=== PATIENT | male | born 1965 | race Caucasian/White ===

== ENCOUNTER 2018-10-03 12:29 | Inpatient (IN) | payer MEDICAID ==
[~2018-10-03] VITALS: Ht 175.3 cm; Wt 110.9 kg
[2018-10-03 12:58] LABS: BASOPHILS # (AUTO) 0.06 x10^3/uL (0-0.1); BASOPHILS % (AUTO) 1 % (0-1); EOSINOPHILS # (AUTO) 0.21 x10^3/uL (0-0.4); EOSINOPHILS % (AUTO) 3 % (1-7); LYMPHOCYTES # (AUTO) 1.65 x10^3/uL (1-3.4); LYMPHOCYTES % (AUTO) 20 % (22-44); MD NO; MEAN CORPUSCULAR HEMOGLOBIN 32.3 pg (27.5-34.5); MEAN CORPUSCULAR HGB CONC 33.2 g/dL (33.2-36.2); MEAN CORPUSCULAR VOLUME 97.1 fL (81-97); MONOCYTES # (AUTO) 0.57 x10^3/uL (0.2-0.8); MONOCYTES % (AUTO) 7 % (2-9); NEUTROPHILS # (AUTO) 5.76 x10^3/uL (1.8-6.8); NEUTROPHILS % (AUTO) 70 % (42-75); PLATELET COUNT 389 x10^3/uL (130-400); RED BLOOD COUNT 4.73 x10^6/uL (4.38-5.82); RED CELL DISTRIBUTION WIDTH 14.1 % (9.4-14.8)
[2018-10-03 13:09] LABS: ALBUMIN 0.6 g/dL (3.4-5.0); ANION GAP 5 mmol/L (5-15); CALCIUM 7.5 mg/dL (8.5-10.1); CHLORIDE 109 mmol/L (98-107)
[2018-10-03 13:14] LABS: ALANINE AMINOTRANSFERASE 14 U/L (12-78); ALKALINE PHOSPHATASE 67 U/L (45-117); BILIRUBIN,TOTAL 0.2 mg/dL (0.2-1.0); CREATININE 1.25 mg/dL (0.7-1.3); TOTAL PROTEIN 4.6 g/dL (6.4-8.2)
--- NOTE | 2018-10-03 14:14 | NUR ---
OUTPATIENT CLERK: PT TO ROOM FROM [facility].
--- NOTE | 2018-10-03 14:25 | NUR ---
PT TO ED WITH GENERALIZED ABDOMINAL AND LE SWELLING X1MO. PT PLACED ON MONITOR, MD AT BEDSIDE
[2018-10-03] MEDS ORDERED: FUROSEMIDE 40 MG/4 ML IVPush ONE (14:30)
[2018-10-03] MEDS ORDERED: SODIUM CHLORIDE FLUSH 10ML SYR IVF ONE (14:30)
[2018-10-03] MEDS ORDERED: OMNIPAQUE 350 MG/ML, 150 ML BOTTLE ONE (15:02)
[2018-10-03] MEDS ORDERED: FUROSEMIDE 20 MG/2 ML ONE (15:23)
--- NOTE | 2018-10-03 15:32 | NUR ---
PT BACK FROM CT, LASIX GIVEN. AWAITING URINE SAMPLE, PT DOES NOT WANT CATH, STATES HE WILL TRY AND PEE. FRIEND AT BEDSIDE, PT RESTING IN GURNEY WATCHING TV
[2018-10-03 15:39] LABS: THYROID STIMULATING HORMONE 3.93 mIU/L (0.358-3.740)
--- NOTE | 2018-10-03 16:36 | NUR ---
URINE SENT TO LAB
[2018-10-03 17:15] LABS: MICROSCOPIC INDICATED
[2018-10-03 17:34] LABS: CULTURE INDICATED? NO
[2018-10-03] MEDS ORDERED: ONDANSETRON 2MG/ML, 2ML IVPush PRN (18:00)
[2018-10-03] MEDS ORDERED: hydrALAzine 20 MG/ML, 1ML IVPush PRN (18:00)
[2018-10-03] MEDS ORDERED: ACETAMINOPHEN 325 MG TABLET PO PRN (18:00)
[2018-10-03] MEDS ORDERED: ENOXAPARIN 40 MG/0.4 ML ONE ×2 (18:08→18:31)
[2018-10-03 18:30] LABS: AMPHETAMINE SCREEN, URINE Negative (Negative); BARBITURATE SCREEN, URINE Negative (Negative); BENZODIAZEPINE SCREEN, URINE Negative (Negative); CANNABINOID SCREEN, URINE Negative (Negative); COCAINE SCREEN, URINE Negative (Negative); METHADONE SCREEN, URINE Negative (Negative); OPIATE SCREEN, URINE Negative (Negative)
[2018-10-03] MEDS: ALBUMIN HUMAN 25% 100 ML IV SCH (18:38)
[2018-10-03] MEDS: ENOXAPARIN 40 MG/0.4 ML SQ SCH (18:38)
--- NOTE | 2018-10-03 18:41 | NUR ---
BREAK RN: PT MEDICATED PER MD ORDER, EDUCATION ABOUT MEDICATIONS PROVIDED, ALL QUESTIONS ANSWERED. VSS AND INPUTTED INTO COMPUTER.
--- NOTE | 2018-10-03 19:13 | NUR ---
REPORT TO ED RIC[facility]
[2018-10-03 19:35] VITALS: BP 130/94
[2018-10-03 20:10] VITALS: BP 106/57
[2018-10-04 01:10] VITALS: BP 111/72
[2018-10-04] MEDS: ALBUMIN HUMAN 25% 100 ML IV SCH ×3 (02:53→17:29)
[2018-10-04 06:49] VITALS: BP 105/69
[2018-10-04 08:18] LABS: CHOL/HDL RATIO 12.7; LDL/HDL RATIO 9.8 (0.5-3.0)
[2018-10-04 13:16] VITALS: BP 113/71
[2018-10-04] MEDS: ENOXAPARIN 40 MG/0.4 ML SQ SCH (17:29)
[2018-10-04 19:55] VITALS: BP 114/69
[2018-10-05 01:10] VITALS: BP 119/70
[2018-10-05] MEDS: ALBUMIN HUMAN 25% 100 ML IV SCH ×4 (01:51→20:57)
[2018-10-05 04:59] LABS: ALANINE AMINOTRANSFERASE 8 U/L (12-78); ALBUMIN 1.5 g/dL (3.4-5.0); ANION GAP 3 mmol/L (5-15); CALCIUM 7.4 mg/dL (8.5-10.1); CHLORIDE 111 mmol/L (98-107); CREATININE 1.11 mg/dL (0.7-1.3)
[2018-10-05 05:01] LABS: ALKALINE PHOSPHATASE 38 U/L (45-117); BILIRUBIN,TOTAL 0.4 mg/dL (0.2-1.0)
[2018-10-05] MEDS ORDERED: FUROSEMIDE 20 MG/2 ML IV SCH ×2 (07:30→12:00)
[2018-10-05 08:22] VITALS: BP 118/76
[2018-10-05] MEDS: FUROSEMIDE 20 MG/2 ML IV SCH ×2 (11:14→21:45)
[2018-10-05 14:03] VITALS: BP 111/71
[2018-10-05] MEDS: ENOXAPARIN 40 MG/0.4 ML SQ SCH (18:40)
[2018-10-05 19:01] VITALS: BP 115/73
[2018-10-06 00:03] VITALS: BP 129/82
[2018-10-06 05:00] LABS: CHLORIDE 112 mmol/L (98-107)
[2018-10-06 05:03] LABS: ANION GAP 3 mmol/L (5-15); CALCIUM 7.3 mg/dL (8.5-10.1); CREATININE 0.93 mg/dL (0.7-1.3)
[2018-10-06 06:53] VITALS: BP 116/77
[2018-10-06] MEDS: ALBUMIN HUMAN 25% 100 ML IV SCH ×2 (12:53→17:40)
[2018-10-06] MEDS: ERGOCALCIFEROL 50,000 UNIT CAPSULE PO SCH (12:53)
[2018-10-06] MEDS: FUROSEMIDE 20 MG/2 ML IV SCH ×2 (12:54→18:56)
[2018-10-06 13:04] VITALS: BP 118/82
[2018-10-06] MEDS: ENOXAPARIN 40 MG/0.4 ML SQ SCH (18:57)
[2018-10-06 19:27] VITALS: BP 119/78
[2018-10-07 01:07] VITALS: BP 120/79
[2018-10-07 06:50] VITALS: BP 120/74
[2018-10-07 08:43] LABS: INTERNATIONAL NORMALIZED RATIO 1.02 (0.93-1.1); PROTHROMBIN TIME 10.7 Seconds (9.6-11.5)
[2018-10-07] MEDS: ALBUMIN HUMAN 25% 100 ML IV SCH ×3 (10:23→20:24)
[2018-10-07] MEDS: FUROSEMIDE 20 MG/2 ML IV SCH ×3 (10:24→21:00)
[2018-10-07 12:53] VITALS: BP 101/70
[2018-10-07] MEDS ORDERED: FLUMAZENIL 0.1 MG/1 ML, 5ML ONE (14:16)
[2018-10-07] MEDS ORDERED: FENTANYL PF 100 MCG/2ML ONE (14:16)
[2018-10-07] MEDS ORDERED: MIDAZOLAM 1 MG/ML, 5ML ONE (14:16)
[2018-10-07] MEDS ORDERED: NALOXONE 1 MG/ML, 2ML ONE (14:17)
[2018-10-07] MEDS: ENOXAPARIN 40 MG/0.4 ML SQ SCH (17:26)
[2018-10-07 19:24] VITALS: BP 100/62
[2018-10-08 01:13] VITALS: BP 127/85
[2018-10-08 05:03] LABS: ALBUMIN 1.1 g/dL (3.4-5.0); ANION GAP 4 mmol/L (5-15); CALCIUM 7.3 mg/dL (8.5-10.1); CHLORIDE 112 mmol/L (98-107); CREATININE 1.04 mg/dL (0.7-1.3)
[2018-10-08 06:52] VITALS: BP 124/82
[2018-10-08] MEDS: ALBUMIN HUMAN 25% 100 ML IV SCH ×3 (07:31→17:26)
[2018-10-08] MEDS: FUROSEMIDE 20 MG/2 ML IV SCH (08:06)
[2018-10-08 12:28] VITALS: BP 130/84
[2018-10-08] MEDS: FUROSEMIDE 40 MG/4 ML IV SCH ×2 (12:41→18:25)
[2018-10-08 14:04] LABS: ANA SCREEN POSITIVE (Negative)
[2018-10-08] MEDS: ENOXAPARIN 40 MG/0.4 ML SQ SCH (17:33)
[2018-10-08 17:40] LABS: ANTI-NUCLEAR ANTIBODY PATTERN NUCLEOLAR
[2018-10-08 19:00] VITALS: BP 121/78
[2018-10-09 01:55] VITALS: BP 115/79
[2018-10-09 04:49] LABS: ALBUMIN 1.2 g/dL (3.4-5.0); ANION GAP 6 mmol/L (5-15); CALCIUM 7.6 mg/dL (8.5-10.1); CHLORIDE 111 mmol/L (98-107)
[2018-10-09 04:54] LABS: % IRON SATURATION 100 % (20-55); CREATININE 0.98 mg/dL (0.7-1.3); IRON LEVEL 39 mcg/dL (65-175); TOTAL IRON BINDING CAPACITY 39 mcg/dL (250-450)
[2018-10-09 07:06] VITALS: BP 118/77
[2018-10-09] MEDS: ALBUMIN HUMAN 25% 100 ML IV SCH ×3 (07:41→16:45)
[2018-10-09] MEDS: FUROSEMIDE 40 MG/4 ML IV SCH ×3 (08:29→17:38)
[2018-10-09 12:47] VITALS: BP 134/89
[2018-10-09] MEDS: ENOXAPARIN 40 MG/0.4 ML SQ SCH (17:38)
[2018-10-09 20:13] VITALS: BP 125/84
[2018-10-10 01:00] VITALS: BP 130/84
[2018-10-10 05:37] LABS: ALBUMIN 1.3 g/dL (3.4-5.0); ANION GAP 6 mmol/L (5-15); CALCIUM 7.8 mg/dL (8.5-10.1); CHLORIDE 110 mmol/L (98-107)
[2018-10-10 06:33] VITALS: BP 116/79
[2018-10-10] MEDS ORDERED: methylPREDNISolone SOD SUCC 40 MG/ML IV SCH (09:00)
[2018-10-10] MEDS: ALBUMIN HUMAN 25% 100 ML IV SCH ×3 (09:05→16:57)
[2018-10-10] MEDS ORDERED: FUROSEMIDE 40 MG/4 ML IV ONE (09:30)
[2018-10-10] MEDS: LOSARTAN 25MG TABLET PO SCH (09:38)
[2018-10-10 14:19] VITALS: BP 120/77
[2018-10-10] MEDS: ENOXAPARIN 40 MG/0.4 ML SQ SCH (16:57)
[2018-10-10] MEDS ORDERED: FUROSEMIDE 20 MG TABLET PO SCH (17:00)
[2018-10-10 18:44] VITALS: BP 142/86
[2018-10-11 00:42] VITALS: BP 136/91
[2018-10-11 06:53] VITALS: BP 103/65
[2018-10-11] MEDS ORDERED: INSULIN LISPRO 100 UNITS/ML, PEN SQ-INSULIN SCH (08:00)
[2018-10-11] MEDS: ALBUMIN HUMAN 25% 100 ML IV SCH ×3 (09:54→19:18)
[2018-10-11 10:26] LABS: ALBUMIN 1.1 g/dL (3.4-5.0); ANION GAP 7 mmol/L (5-15); CALCIUM 7.8 mg/dL (8.5-10.1); CHLORIDE 111 mmol/L (98-107); CREATININE 1.14 mg/dL (0.7-1.3)
[2018-10-11] MEDS: LOSARTAN 25MG TABLET PO SCH (10:40)
[2018-10-11] MEDS: FUROSEMIDE 80 MG TABLET PO SCH ×2 (10:40→19:55)
[2018-10-11 12:37] VITALS: BP 146/77
[2018-10-11] MEDS: INSULIN LISPRO 100 UNITS/ML, PEN SQ-INSULIN SCH (17:16)
[2018-10-11] MEDS: ENOXAPARIN 40 MG/0.4 ML SQ SCH (18:31)
[2018-10-11 19:05] VITALS: BP 118/72
[2018-10-12 01:03] VITALS: BP 110/69
[2018-10-12 04:42] LABS: ANION GAP 5 mmol/L (5-15); CALCIUM 7.6 mg/dL (8.5-10.1); CHLORIDE 111 mmol/L (98-107); CREATININE 1.24 mg/dL (0.7-1.3)
[2018-10-12 06:55] VITALS: BP 133/77
[2018-10-12] MEDS ORDERED: FUROSEMIDE 40 MG TABLET PO SCH (08:00)
[2018-10-12] MEDS: LOSARTAN 25MG TABLET PO SCH (09:53)
[2018-10-12] MEDS: FUROSEMIDE 40 MG TABLET PO SCH ×2 (09:54→17:24)
[2018-10-12] MEDS: INSULIN LISPRO 100 UNITS/ML, PEN SQ-INSULIN SCH ×2 (09:54→17:27)
[2018-10-12 13:55] VITALS: BP 122/74
[2018-10-12] MEDS: ENOXAPARIN 40 MG/0.4 ML SQ SCH (18:03)
[2018-10-12 18:51] VITALS: BP 116/75
[2018-10-13 01:05] VITALS: BP 103/66
[2018-10-13 06:34] VITALS: BP 120/76
[2018-10-13] MEDS: LOSARTAN 25MG TABLET PO SCH (07:22)
[2018-10-13] MEDS: FUROSEMIDE 40 MG TABLET PO SCH (07:23)
[2018-10-13] MEDS: INSULIN LISPRO 100 UNITS/ML, PEN SQ-INSULIN SCH ×2 (07:25→17:04)
[2018-10-13] MEDS: FUROSEMIDE 80 MG TABLET PO SCH ×2 (08:12→17:02)
[2018-10-13] MEDS: ERGOCALCIFEROL 50,000 UNIT CAPSULE PO SCH (11:57)
[2018-10-13 12:14] VITALS: BP 101/70
[2018-10-13] MEDS: ENOXAPARIN 40 MG/0.4 ML SQ SCH (17:02)
[2018-10-13 19:02] VITALS: BP 103/63
[2018-10-14 00:37] VITALS: BP 120/84
[2018-10-14 04:57] LABS: ALBUMIN 0.7 g/dL (3.4-5.0); ANION GAP 6 mmol/L (5-15); CALCIUM 7.1 mg/dL (8.5-10.1); CHLORIDE 108 mmol/L (98-107); CREATININE 1.14 mg/dL (0.7-1.3)
[2018-10-14 06:53] VITALS: BP 101/65
[2018-10-14] MEDS: INSULIN LISPRO 100 UNITS/ML, PEN SQ-INSULIN SCH (07:53)
[2018-10-14] MEDS: LOSARTAN 25MG TABLET PO SCH (09:00)
[2018-10-14] MEDS: FUROSEMIDE 80 MG TABLET PO SCH (09:24)
[2018-10-14] MEDS ORDERED: LOSA25TA25 PO (12:53)
[2018-10-14] MEDS ORDERED: PRED20TA PO (12:53)
[2018-10-14] MEDS ORDERED: ERGO500017 PO (12:53)
[2018-10-14] MEDS ORDERED: FURO80TA3 PO (12:53)
[2018-10-14] MEDS ORDERED: ATOR40TA78 PO (13:22)
[2018-10-14 13:25] VITALS: BP 126/89
== END 2018-10-14 15:36 | disposition home or self-care (01) | DRG 682 ==
LOC: ED 14:40 → EDIP 16:34 → 3NW 19:26 → DCLOUNGE 10-14 15:20
PROVIDERS: ADMIT Internal Medicine; ATTEND Internal Medicine
PROC: 0TB13ZX Excision of Left Kidney, Percutaneous Approach, Diagnostic (ICD-10-PCS; principal; 2018-10-07)
DX: N17.0 Acute kidney failure with tubular necrosis (principal); E43 Unspecified severe protein-calorie malnutrition; R18.8 Other ascites; J91.8 Pleural effusion in other conditions classified elsewhere; D64.9 Anemia, unspecified; E78.5 Hyperlipidemia, unspecified; E83.51 Hypocalcemia; N05.9 Unspecified nephritic syndrome with unspecified morphologic changes; F32.9 Major depressive disorder, single episode, unspecified; F15.90 Other stimulant use, unspecified, uncomplicated; Z87.891 Personal history of nicotine dependence; Z79.899 Other long term (current) drug therapy; Z68.36 Body mass index [BMI] 36.0-36.9, adult
CPT/HCPCS: 36415; 50200; 71045; 74177; 77012; 80048; 80053; 80061; 80069; 80074; 80307; 81001; 82306; 82570; 82728; 82962; 83520; 83540; 83550; 83735; 83880; 83970; 84100; 84155; 84156; 84165; 84166; 84439; 84443; 85014; 85018; 85025; 85610; 86038; 86039; 86225; 86256; 87806; 88300; 93005; 93306; 96372; 96374; 99156; 99157; 99285; G0378; J1650; J1940; J2250; J2930; J3010; P9047; Q9967; G0475; J1815; J2310; J7512

== ENCOUNTER 2018-10-27 21:47 | Inpatient (IN) | payer MEDICAID ==
[~2018-10-27] VITALS: Ht 175.3 cm; Wt 107.1 kg
[~2018-10-27 21:47] MED LIST: ATOR40TA78 PO; ERGO500017 PO; FURO80TA3 PO; LOSA25TA25 PO; PRED20TA PO
[2018-10-27] MEDS ORDERED: CEFAZOLIN PMX 1GM/50ML 50 ML ONE (22:19)
[2018-10-27] MEDS ORDERED: MORPHINE SULFATE 4 MG/ML, 1ML ONE (22:19)
--- NOTE | 2018-10-27 22:22 | NUR ---
pt to room from triage with c/o bi lat lower extremity swelling with blisters to legs
[2018-10-27] MEDS ORDERED: ALBUMIN HUMAN 25% 100 ML IV ONE (22:30)
[2018-10-27] MEDS ORDERED: NYSTATIN TOPICAL POWDER 15GM TP ONE (22:30)
[2018-10-27] MEDS ORDERED: CEFAZOLIN PMX 1GM/50ML 50 ML IV ONE (22:30)
[2018-10-27] MEDS ORDERED: SODIUM CHLORIDE FLUSH 10ML SYR IVF ONE (22:30)
[2018-10-27] MEDS: MORPHINE SULFATE 4 MG/ML, 1ML IVPush PRN (22:33)
[2018-10-27 23:12] LABS: CULTURE INDICATED? NO; MICROSCOPIC AUTO
[2018-10-27 23:12] LABS: BASOPHILS % (AUTO) 0 % (0-1); EOSINOPHILS % (AUTO) 0 % (1-7); LYMPHOCYTES % (AUTO) 5 % (22-44); MD NO; MEAN CORPUSCULAR HEMOGLOBIN 33.5 pg (27.5-34.5); MEAN CORPUSCULAR HGB CONC 34.2 g/dL (33.2-36.2); MEAN CORPUSCULAR VOLUME 97.8 fL (81-97); MEAN PLATELET VOLUME 8.3 fL (7.4-10.4); MONOCYTES # (AUTO) 0.91 x10^3/uL (0.2-0.8); MONOCYTES % (AUTO) 11 % (2-9); NEUTROPHILS # (AUTO) 7.31 x10^3/uL (1.8-6.8); NEUTROPHILS % (AUTO) 85 % (42-75); PLATELET COUNT 313 x10^3/uL (130-400); RED BLOOD COUNT 3.23 x10^6/uL (4.38-5.82); RED CELL DISTRIBUTION WIDTH 13.9 % (9.4-14.8)
[2018-10-27 23:21] LABS: ALANINE AMINOTRANSFERASE 167 U/L (12-78); ANION GAP 9 mmol/L (5-15); CALCIUM 6.7 mg/dL (8.5-10.1); CHLORIDE 103 mmol/L (98-107); CREATININE 1.31 mg/dL (0.7-1.3)
[2018-10-27 23:31] LABS: ALKALINE PHOSPHATASE 56 U/L (45-117); BILIRUBIN,TOTAL 0.2 mg/dL (0.2-1.0); T4 (THYROXINE) 3.5 mcg/dL (4.5-12.1); THYROID STIMULATING HORMONE 0.518 mIU/L (0.358-3.740)
[2018-10-28] MEDS ORDERED: MORPHINE SULFATE 4 MG/ML, 1ML ONE (00:04)
--- NOTE | 2018-10-28 00:11 | NUR ---
awaiting admit bed
[2018-10-28] MEDS: MORPHINE SULFATE 4 MG/ML, 1ML IVPush PRN (00:26)
[2018-10-28 00:41] LABS: SALICYLATE LEVEL < 1.7 mg/dL (2.8-20.0)
[2018-10-28 00:46] LABS: AMPHETAMINE SCREEN, URINE Positive (Negative); BARBITURATE SCREEN, URINE Negative (Negative); BENZODIAZEPINE SCREEN, URINE Negative (Negative); CANNABINOID SCREEN, URINE Negative (Negative); COCAINE SCREEN, URINE Negative (Negative); METHADONE SCREEN, URINE Negative (Negative); OPIATE SCREEN, URINE Negative (Negative)
--- NOTE | 2018-10-28 00:47 | NUR ---
report to moose pt to floor with tech
[2018-10-28 01:05] LABS: CREATINE KINASE, TOTAL 13118 U/L (39-308)
[2018-10-28 01:08] VITALS: BP 126/78
[2018-10-28 07:03] VITALS: BP 112/71
[2018-10-28] MEDS: FUROSEMIDE 80 MG TABLET PO SCH ×2 (09:02→17:35)
[2018-10-28] MEDS: CLINDAMYCIN PMX 600MG/50ML 50 ML IV SCH ×2 (09:05→17:35)
[2018-10-28 12:30] VITALS: BP 119/67
[2018-10-28 19:17] VITALS: BP 112/71
[2018-10-28] MEDS ORDERED: ATORVASTATIN 40 MG TABLET PO SCH (21:00)
[2018-10-29 01:26] VITALS: BP 109/67
[2018-10-29] MEDS: CLINDAMYCIN PMX 600MG/50ML 50 ML IV SCH ×2 (01:33→09:11)
[2018-10-29 05:12] LABS: BASOPHILS # (AUTO) 0.01 x10^3/uL (0-0.1); BASOPHILS % (AUTO) 0 % (0-1); EOSINOPHILS # (AUTO) 0.02 x10^3/uL (0-0.4); EOSINOPHILS % (AUTO) 0 % (1-7); LYMPHOCYTES % (AUTO) 21 % (22-44); MD NO; MEAN CORPUSCULAR HEMOGLOBIN 32.6 pg (27.5-34.5); MEAN CORPUSCULAR HGB CONC 33.8 g/dL (33.2-36.2); MEAN CORPUSCULAR VOLUME 96.3 fL (81-97); MEAN PLATELET VOLUME 7.8 fL (7.4-10.4); MONOCYTES # (AUTO) 0.43 x10^3/uL (0.2-0.8); MONOCYTES % (AUTO) 7 % (2-9); NEUTROPHILS % (AUTO) 72 % (42-75); PLATELET COUNT 262 x10^3/uL (130-400); RED BLOOD COUNT 3.12 x10^6/uL (4.38-5.82); RED CELL DISTRIBUTION WIDTH 14.3 % (9.4-14.8)
[2018-10-29 05:19] LABS: ALANINE AMINOTRANSFERASE 104 U/L (12-78); ALBUMIN 1.2 g/dL (3.4-5.0); ANION GAP 4 mmol/L (5-15); CALCIUM 7.2 mg/dL (8.5-10.1); CHLORIDE 106 mmol/L (98-107); CREATININE 0.66 mg/dL (0.7-1.3)
[2018-10-29 05:21] LABS: ALKALINE PHOSPHATASE 47 U/L (45-117); BILIRUBIN,TOTAL 0.4 mg/dL (0.2-1.0)
[2018-10-29 07:12] VITALS: BP 121/68
[2018-10-29] MEDS: POTASSIUM CHLORIDE 20 MEQ TAB.ER.PRT PO SCH ×2 (09:12→11:05)
[2018-10-29] MEDS: FUROSEMIDE 80 MG TABLET PO SCH (09:12)
[2018-10-29 12:25] VITALS: BP 114/71
[2018-10-29] MEDS ORDERED: PRED20TA PO (14:10)
== END 2018-10-29 15:00 | disposition home or self-care (01) | DRG 700 ==
LOC: ED 23:24 → EDIP 10-28 → 4WST 10-28 01:15 → DCLOUNGE 10-29 14:52
PROVIDERS: ADMIT Internal Medicine; ATTEND Internal Medicine
DX: N04.9 Nephrotic syndrome with unspecified morphologic changes (principal); B35.6 Tinea cruris; E88.09 Other disorders of plasma-protein metabolism, not elsewhere classified; N49.2 Inflammatory disorders of scrotum; N50.89 Other specified disorders of the male genital organs; Z87.891 Personal history of nicotine dependence
CPT/HCPCS: 36415; 71250; 80053; 80074; 80307; 81001; 82550; 83880; 84132; 84145; 84436; 84443; 85025; 93005; G0378; J0690; P9047; J2270; J7512